=== PATIENT | female | born 1950 | race Caucasian/White ===

== ENCOUNTER 2018-12-31 11:24 | Emergency (ER) | payer MEDICARE, OTHER | END 2018-12-31 13:18 | disposition home or self-care (01) | LOC: ER FS 11:24 ==

== ENCOUNTER 2022-08-09 09:59 | Emergency (ER) | payer MEDICARE, OTHER ==
[~2022-08-09] VITALS: Ht 162.6 cm; Wt 77.2 kg
[~2022-08-09 09:59] MED LIST: NITR-65 PO; PRD20T PO
--- NOTE | 2022-08-09 10:04 | ED General ---
General Stated Complaint: LEFT SIDE NUMBNESS History of Present Illness Date Seen by Provider: Aug 09, 2022 Time Seen by Provider: 10:04 Initial Comments 72-year-old female presents with some left-sided numbness. She reports that yesterday afternoon it started with some numbness to the left side of her face especially in her cheek and around her ear. That today she is complaining of some numbness in her left lower extremity. 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 She does report that she was recently started on physical therapy because she was falling and was just having some generalized lower extremity weakness. She is diabetic. Denies any recent illnesses. Allergies and Home Medications Allergies Coded Allergies: No Known Drug Allergies (Unverified , 12/31/18) Patient Home Medication List Home Medication List Reviewed: Yes Nitrofurantoin Monohyd/M-Cryst (Macrobid 100 mg Capsule) 100 Mg Capsule, 1 TAB PO BID Prescribed by: VIOLETA TAMEZ on 12/31/18 1300 Prednisone (Prednisone) 20 Mg Tab, 80 MG PO DAILY Prescribed by: VIOLETA TAMEZ on 12/31/18 1256 Review of Systems Review of Systems Constitutional: No chills, No dizziness, No fever EENTM: no symptoms reported Respiratory: no symptoms reported Cardiovascular: no symptoms reported Gastrointestinal: no symptoms reported Genitourinary: no symptoms reported Musculoskeletal: no symptoms reported Skin: no symptoms reported Psychiatric/Neurological: See HPI, Numbness Past Felayfm-Xmbhlj-Ishikx Hx Seasonal Allergies Seasonal Allergies: No Past Medical History Surgeries: Yes Hysterectomy, Orthopedic Respiratory: No Cardiac: Yes High Cholesterol, Hypertension 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 oz. 74.189453nv; BMI Method:Stated General Appearance: No Apparent Distress, WD/WN Eyes: Bilateral Eye Normal Inspection, Bilateral Eye PERRL HEENT: Pharynx Normal, Moist Mucous Membranes Neck: Non Tender, Supple Respiratory: Lungs Clear, Normal Breath Sounds Cardiovascular: Regular Rate, Rhythm, No Edema Gastrointestinal: Non Tender, Soft Extremity: Normal Capillary Refill, Normal Inspection, Normal Range of Motion, Non Tender Neurologic/Psychiatric: Alert, Oriented x3, Normal Mood/Affect; No Abnormal Gait, No Aphasia; Facial Droop (Mild left-sided), Sensory Deficit (Mild left- sided lower extremity and face), Other (NIH 2) Skin: Normal Color, Warm/Dry Progress/Results/Core Measures Suspected Sepsis SIRS Temperature: Pulse: Respiratory Rate: Laboratory Tests 08/09/22 10:10: White Blood Count 9.0 Blood Pressure / Mean: Laboratory Tests 08/09/22 10:10: Creatinine 0.55L, INR Comment 0.9, Platelet Count 302, Total Bilirubin 0.3 Results/Orders Lab Results Laboratory Tests Test 08/09/22 10:10 Range/Units White Blood Count 9.0 4.3-11.0 10^3/uL Red Blood Count 4.09 3.80-5.11 10^6/uL Hemoglobin 12.5 11.5-16.0 g/dL Hematocrit 37 35-52 % Mean Corpuscular Volume 90 80-99 fL Mean Corpuscular Hemoglobin 31 25-34 pg Mean Corpuscular Hemoglobin Concent 34 32-36 g/dL Red Cell Distribution Width 13.0 10.0-14.5 % Platelet Count 302 130-400 10^3/uL Mean Platelet Volume 10.8 9.0-12.2 fL Immature Granulocyte % (Auto) 0 % Neutrophils (%) (Auto) 58 42-75 % Lymphocytes (%) (Auto) 32 12-44 % Monocytes (%) (Auto) 6 0-12 % Eosinophils (%) (Auto) 4 0-10 % Basophils (%) (Auto) 1 0-10 % Neutrophils # (Auto) 5.2 1.8-7.8 10^3/uL Lymphocytes # (Auto) 2.9 1.0-4.0 10^3/uL Monocytes # (Auto) 0.5 0.0-1.0 10^3/uL Eosinophils # (Auto) 0.3 0.0-0.3 10^3/uL Basophils # (Auto) 0.1 0.0-0.1 10^3/uL Immature Granulocyte # (Auto) 0.0 0.0-0.1 10^3/uL Prothrombin Time 12.7 12.2-14.7 SEC INR Comment 0.9 0.8-1.4 Activated Partial Thromboplast Time 27 24-35 SEC Sodium Level 139 135-145 MMOL/L Potassium Level 4.4 3.6-5.0 MMOL/L Chloride Level 102 98-107 MMOL/L Carbon Dioxide Level 23 21-32 MMOL/L Anion Gap 14 5-14 MMOL/L Blood Urea Nitrogen 13 7-18 MG/DL Creatinine 0.55 L 0.60-1.30 MG/DL Estimat Glomerular Filtration Rate 96 BUN/Creatinine Ratio 24 Glucose Level 128 H 70-105 MG/DL Calcium Level 8.7 8.5-10.1 MG/DL Corrected Calcium 8.5 8.5-10.1 MG/DL Magnesium Level 1.6 1.6-2.4 MG/DL Total Bilirubin 0.3 0.1-1.0 MG/DL Aspartate Amino Transf (AST/SGOT) 30 5-34 U/L Alanine Aminotransferase (ALT/SGPT) 26 0-55 U/L Alkaline Phosphatase 82 40-136 U/L Total Protein 6.7 6.4-8.2 GM/DL Albumin 4.3 3.2-4.5 GM/DL My Orders Orders - PAULA TORO DO Ct Angio Head/Neck (08/09/22 10:09) Ct Head Wo-R/O Stroke (08/09/22 10:09) Cbc With Automated Diff (08/09/22 10:09) Comprehensive Metabolic Panel (08/09/22 10:09) Magnesium (08/09/22 10:09) Protime With Inr (08/09/22 10:09) Partial Thromboplastin Time (08/09/22 10:09) Thyroid Stimulating Hormone (08/09/22 10:10) Iohexol Injection (Omnipaque 350 Mg/Ml 1 (08/09/22 10:30) Received Contrast (Hold Metformin- Contr (08/09/22 10:30) Ns (Ivpb) (Sodium Chloride 0.9% Ivpb Bag (08/09/22 10:30) Medications Given in ED Current Medications Medications Dose Ordered Sig/[place] Route Start Time Stop Time Status Last Admin Dose Admin Iohexol 100 ml ONCE ONCE IV 08/09/22 10:30 08/09/22 10:32 DC 08/09/22 10:50 75 ML Sodium Chloride 100 ml ONCE ONCE IV 08/09/22 10:30 08/09/22 10:32 DC 08/09/22 10:49 100 ML Vital Signs/I&O 08/09/22 10:07 Temp 36.1 Pulse 80 Resp 18 B/P (MAP) 180/82 (114) Pulse Ox 97 O2 Delivery Room Air Capillary Refill : Progress Note : Progress Note Patient's diagnostic tests were ordered reviewed and interpreted by me. Patient's labs today show no significant findings. Patient's CTs were ordered and reviewed with final interpretation per radiology report. Patient CT head and CTA head and neck showed no acute findings. Patient has minimal decreased sensory on the left leg that is almost unnoticeable. She has a questionable left-sided facial droop however unsure if this is true facial droop and new versus a history of Koroma's palsy that could be affecting the actual facial anatomy as far as how it looks. Patient had minimal decreased sensation over the left cheek but otherwise no significant neurologic findings. Did have a long discussion with patient regarding admission for further evaluation including possible MRI, neurology consult etc. versus outpatient evaluation. This time patient felt that she would prefer to not be admitted we will follow- up with her primary care provider next week to discuss further evaluation. She does have a history of some lower extremity weakness that improved with physical therapy. However with this history I did recommend she may want to consider MRI outpatient to ensure there is no other etiology. Patient will return to the ER with any concerns or worsening of her symptoms. She is stable and discharged home. Departure Impression Primary Impression: Left facial numbness Additional Impression: Paresthesia of left lower extremity Disposition: HOME, SELF-CARE Condition: Stable Departure-Patient Inst. Referrals: EMMIE SALAS MD (PCP/Family) Primary Care Physician Patient Instructions: Paresthesia (DC), Transient Ischemic Attack (DC) Add. Discharge Instructions: Please follow-up with your primary care provider next week to discuss possible MRI and further outpatient evaluation. Return to the ER with any concerns PAULA TORO DO Aug 09, 2022 10:04
[2022-08-09 10:18] LABS: BASOPHILS # (AUTO) 0.1 10^3/uL (0.0-0.1); BASOPHILS % (AUTO) 1 % (0-10); EOSINOPHILS # (AUTO) 0.3 10^3/uL (0.0-0.3); EOSINOPHILS % (AUTO) 4 % (0-10); HEMATOCRIT 37 % (35-52); HEMOGLOBIN 12.5 g/dL (11.5-16.0); LYMPHOCYTES # (AUTO) 2.9 10^3/uL (1.0-4.0); LYMPHOCYTES % (AUTO) 32 % (12-44); MEAN CORPUSCULAR HEMOGLOBIN 31 pg (25-34); MEAN CORPUSCULAR HGB CONC 34 g/dL (32-36); MEAN CORPUSCULAR VOLUME 90 fL (80-99); MEAN PLATELET VOLUME 10.8 fL (9.0-12.2); MONOCYTES # (AUTO) 0.5 10^3/uL (0.0-1.0); MONOCYTES % (AUTO) 6 % (0-12); NEUTROPHILS # (AUTO) 5.2 10^3/uL (1.8-7.8); NEUTROPHILS % (AUTO) 58 % (42-75); PLATELET COUNT 302 10^3/uL (130-400)
[2022-08-09 10:28] LABS: INR 0.9 (0.8-1.4); PROTHROMBIN TIME PATIENT 12.7 SEC (12.2-14.7)
[2022-08-09] MEDS ORDERED: HOLD METFORMIN - RECEIVED CONTRAST 20 ML VIAL IV SCH (10:30)
[2022-08-09] MEDS ORDERED: IOHEXOL 350 MG/ML 100 ML (OMNIPAQUE 350) VIAL IV ONE (10:30)
[2022-08-09] MEDS ORDERED: NS 100 ML (IVPB) BAG IV ONE (10:30)
[2022-08-09 10:38] LABS: ALBUMIN 4.3 GM/DL (3.2-4.5); BILIRUBIN,TOTAL 0.3 MG/DL (0.1-1.0); CALCIUM 8.7 MG/DL (8.5-10.1); CREATININE SERUM 0.55 MG/DL (0.60-1.30); MAGNESIUM 1.6 MG/DL (1.6-2.4); POTASSIUM 4.4 MMOL/L (3.6-5.0); TOTAL PROTEIN 6.7 GM/DL (6.4-8.2)
--- NOTE | 2022-08-09 10:42 | Diagnostic Imaging Report ---
EXAMINATION: CT head without contrast. TECHNIQUE: Multiple contiguous axial images were obtained through the brain without the use of intravenous contrast. All CT scans use one or more of the following dose optimizing techniques: automated exposure control, MA and/or KvP adjustment based on patient size and exam type or iterative reconstruction. HISTORY: Left-sided facial droop. COMPARISON: 12/31/2018. FINDINGS: No large acute territorial ischemia, mass, or hemorrhage. No midline shift or mass effect. Decreased attenuation is seen in the periventricular and subcortical white matter. The ventricles and cortical sulci are prominent. The basilar cisterns are patent and unremarkable. The orbits are normal. Small amount of retained secretions is seen in the left maxillary sinus. Mastoid air cells are clear. No soft tissue abnormality is seen. No osseus lesions or fractures are seen. IMPRESSION: 1. No large acute territorial ischemia, mass, or hemorrhage. 2. Chronic microvascular disease. 3. Generalized parenchymal volume loss. Dictated by: Dictated on workstation # [id number]
--- NOTE | 2022-08-09 11:17 | Diagnostic Imaging Report ---
PROCEDURE: CT angiography of the head and CT angiography of the neck with and without contrast. TECHNIQUE: Contiguous noncontrast images were obtained from the skull base through the vertex. After intravenous contrast administration, helical CT angiography of the neck was performed. Source data was reformatted into 3D MIP projections. Delayed post contrast acquisition was also obtained. Auto Exposure Controls were utilized during the CT exam to meet ALARA standards for radiation dose reduction. INDICATION: Left-sided facial droop. Concern for acute ischemia. COMPARISON: CT head performed earlier this same date. FINDINGS: CTA NECK: The visualized portions of the aortic arch demonstrate no evidence of aneurysm or dissection. There is conventional branching pattern of the great vessels of the aorta. The brachiocephalic artery is normal in course and caliber. The right and left common carotid origins are unremarkable. The origin of the left subclavian artery is patent. The common carotid arteries and internal carotid arteries demonstrate a tortuous course. There is a small amount of atherosclerotic plaque in the bilateral carotid bulbs and proximal internal carotid arteries without flow-limiting stenosis. No evidence of dissection in the carotid systems. The external carotid arteries are patent and unremarkable. The left vertebral artery is dominant. The origin of the right vertebral artery is seen and is unremarkable. The origin of the left vertebral artery is seen and is unremarkable. There is no focal stenosis seen within the neck. There is no dissection. The vertebral arteries are well visualized to up to the level of the basilar artery. The osseous structures of the cervical spine are unremarkable. Included views through the lung apices demonstrate no focal consolidation. CTA BRAIN: Atherosclerotic plaque is seen in the tian of the bilateral terminal internal carotid arteries without significant stenosis. No stenosis is seen in the bilateral anterior, middle, and posterior cerebral arteries. No evidence of aneurysm the [place]. In the posterior circulation, both of the vertebral arteries demonstrate normal opacification. Both the right and left PICA arteries are identified. The basilar artery is normal in course and caliber. The terminal branch vessels including the superior cerebellar arteries unremarkable. IMPRESSION: 1. No stenosis or aneurysm in the [place] of [place]. No large vessel occlusion. If symptoms persist, consider MRI of the brain to further evaluate. 2. No stenosis or dissection the bilateral carotid and vertebral arteries. Dictated by: Dictated on workstation # [id number]
[2022-08-09 11:34] VITALS: BP 162/79
== END 2022-08-09 11:35 | disposition home or self-care (01) ==
LOC: EDUNIT# 09:59 → ER FS 10:00
DX: R20.0 Anesthesia of skin (principal); R20.2 Paresthesia of skin; R29.810 Facial weakness; Z86.69 Personal history of other diseases of the nervous system and sense organs
CPT/HCPCS: 36415; 70450; 70496; 70498; 80053; 83735; 84443; 85025; 85610; 85730

== ENCOUNTER → 2022-09-01 | Outpatient (CLI) | payer MEDICARE, OTHER ==
--- NOTE | 2022-09-01 10:55 | Diagnostic Imaging Report ---
CLINICAL INDICATION: Patient with left-sided weakness x3 weeks now. EXAM: MRI of the brain performed without IV contrast. Sequences include axial DWI, ADC map, axial T1, axial T2, axial FLAIR, axial gradient echo, and sagittal T1. COMPARISON: CT angiogram of the head/neck dated 08/09/2022. FINDINGS: There is no evidence of acute cerebral infarct, intracranial hemorrhage, or gross mass effect. There is diffuse brain parenchymal volume loss. There are multiple focal, patchy and confluent areas of high T2 signal white matter changes seen throughout both cerebral hemispheres and periventricular regions, likely representing chronic small vessel ischemic disease and leukoaraiosis. There is normal vazquez-white matter distinction. There is no significant midline shift or herniation. The [place] vascular structures show no gross abnormality as visualized. Partial empty sella turcica is noted. There is no evidence of hydrocephalus. The basal cisterns are unremarkable. There are postoperative changes to both globes which may be related to lens implants. Otherwise, both globes are unremarkable. The skull, extracranial soft tissue, and orbits are unremarkable. There is small amount of mucosal thickening involving left maxillary sinus. Temporal bones show no significant abnormality. IMPRESSION: 1: There is no evidence of acute intracranial process. There is no acute cerebral infarct. 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 Dictated by: Dictated on workstation # [id number]
== END ==
LOC: RAD 08:51
PROVIDERS: ATTEND Family Medicine
DX: I67.81 Acute cerebrovascular insufficiency (principal); I67.82 Cerebral ischemia; R20.0 Anesthesia of skin
CPT/HCPCS: 70551